=== PATIENT | male | born 1985 | race Hispanic/Latino ===

== ENCOUNTER 2021-02-17 08:02 | Emergency (ER) | payer OTHER, SELFPAY ==
[2021-02-17] VITALS (7 sets, daily range): BP systolic 104–145; BP diastolic 64–97; PULSE 69–80; RESP 16; TEMP 36.2; O2SAT 96–100
--- NOTE | ~2021-02-17 | XR_ITS ---
EXAMINATION: XR knee LT 3V DATE: 02/17/2021 14:34 INDICATION: Left knee pain TECHNIQUE: Three views of the left knee were obtained. COMPARISON: None. FINDINGS: Alignment is normal. No fracture or osteochondral lesion. Joint spaces are normal with no e rosions. There is a small knee joint effusion. Soft tissues are unremarkable. IMPRESSION: 1. Small knee joint effusion without acute osseous abnormality. Reviewed, dictated and finalized at location A.
[2021-02-17] MEDS: oxyCODONE/ACETAMINOPHEN (*CRX) 5-325 MG TABLET 2 TABLET PO (14:37)
[2021-02-17] MEDS: methylPREDNISolone SOD SUCC 125 MG VIAL IM (14:38)
--- NOTE | 2021-02-17 14:46 | ED.GENADULT ---
HPI - General Adult General Chief complaint: Extremity Injury, Lower Stated complaint: knee pain Time Seen by Provider: 02/17/21 12:39 Source: patient Mode of arrival: ambulatory History of Present Illness HPI narrative: Patient presents for evaluation of left knee pain. Symptom onset around 2300 last night. He cannot identify any precipitating injury. He said pain started gradually progressively worsened. Pain is now severe, throbbing, radiating into his left thigh and left lower leg. He has a history of gout and states that he believes his symptoms are consistent with that. He took a dose of allopurinol without significant improvement. He states it usually takes about 1 week before he notes improvement when taking gout. He states he is associated warmth, denies any visible wounds. Movement makes his pain worse. No additional complaints or concerns. Related Data Home Medications Medication Instructions Recorded Confirmed allopurinol 02/17/21 Allergies Allergy/AdvReac Type Severity Reaction Status Date / Time No Known Allergies Allergy Verified 02/17/21 14:11 Review of Systems Review of Systems: CONSTITUTIONAL: Denies fever, chills, or sweats. EYES: Denies visual changes, redness, or discharge. ENT: Denies rhinorrhea, congestion, sore throat, or otalgia. CARDIOVASCULAR: Denies chest pain, palpitations, or edema. RESPIRATORY: Denies cough or dyspnea. GASTROINTESTINAL: Denies abdominal pain, nausea, vomiting, or diarrhea. GENITOURINARY: Denies dysuria or hematuria. SKIN: Denies rash or itching. MUSCULOSKELETAL: Reports left knee pain NEUROLOGIC: Denies headache, numbness, dizziness, or weakness. PSYCHIATRIC: Denies anxiety or depression. PMFSH Past Medical History Medical History (Updated 02/17/21 @ 15:49 by ASHLIE Salazar, ) Gout Surgical History Surgical History No pertinent past surgical history Family History Family History Mother No pertinent past medical history Social History Social History Smoking status: Never smoker Alcohol intake: never Spiritual care concerns: No Exam Narrative: GENERAL: Well-appearing, well-nourished, and in no acute distress. HEAD: Normocephalic, atraumatic. EYES: PERRLA and EOMI. ENT: Nares clear, no rhinorrhea or epistaxis. Mucous membranes moist. Oropharynx without tonsillar hypertrophy exudate or other lesions. Bilateral TMs pearly prasad nonbulging NECK: Supple. No adenopathy or masses. No carotid bruits or JVD CHEST: Clear to auscultation. No respiratory distress. No wheezes rales or rhonchi HEART: Regular rate and rhythm. No murmur heard. Normal peripheral pulses. ABDOMEN: Soft, nontender, nondistended, normal active bowel sounds. EXTREMITIES: Patient is able to tolerate full passive range of motion of the left knee. Does have some decreased ROM with extension of the left knee actively 2/2 pain. Trace amount of swelling. No significant tenderness. No crepitus or deformity. No warmth SKIN: Warm, dry, no rash. NEURO: No focal deficits. Alert and oriented x3. PSYCH: Normal mood and affect. Course Course Emergency Course: This is a 35-year-old male who presented with complaints of left knee pain. He has a history of gout and this feels similar. Although his uric acid was not markedly elevated, his exam is consistent with gout. I do not think that this is a septic joint as he has essentially full ROM and no redness. I did offer to tap his knee, which he declined. He would like to go home with prescriptions for prednisone and hydrocodone and he will follow-up outpatient for further evaluation and treatment. He was advised to return for persistent pain or decline in condition. Patient in agreement plan of care Vital Signs Vital signs: Vital Signs Temperatur
[2021-02-17 15:03] LABS: Basophils Percent Auto 0.4 % (0.2-1.2); Eosinophils Absolute Auto 0.2 K/mm3 (0-0.3); Eosinophils Percent Auto 1.8 % (0-4.4); Hematocrit 45.7 % (42.0-52.0); Hemoglobin 15.7 g/dL (14.0-18.0); Immature Granulocyte Absolute 0.04 K/mm3 (0.00-0.031); Immature Granulocyte Percent A 0.4 % (0-0.5); Lymphocytes Absolute Auto 2.01 K/mm3 (0.9-3.2); Lymphocytes Percent Auto 19.4 % (18.3-44.2); Mean Corpuscular HGB Conc 34.4 g/dl (32-36); Mean Corpuscular Hemoglobin 31.5 pg (26-34); Mean Corpuscular Volume 91.6 fl (80-100); Mean Platelet Volume 9.4 fl (7.4-10.4); Monocytes Absolute Auto 0.7 K/mm3 (0.1-0.6); Monocytes Percent Auto 6.5 % (2.6-8.5); Neutrophils Absolute Auto 7.4 K/mm3 (1.3-6.7); Neutrophils Percent Auto 71.5 % (45.5-73.1); Platelet Count Result 301 k/mm3 (150-375); Red Blood Count 4.99 M/mm3 (4.6-6.20); Red Cell Distribution Width 12.7 % (11.5-14.5); White Blood Count 10.3 K/mm3 (4.5-10.0)
[2021-02-17 15:19] LABS: Alanine Aminotransferase 29 U/L (4-50); Alkaline Phosphatase 81 U/L (38-126); Anion Gap 10 mmol/L (8-16); Aspartate Amino Transferase 32 U/L (17-59); Bilirubin,Total 0.8 mg/dL (0.2-1.3); Blood Urea Nitrogen 15 mg/dL (9-20); CRP < 0.5 mg/dL (<1.0); Calcium 9.6 mg/dL (8.4-10.2); Carbon Dioxide 28 mmol/L (22-30); Chloride 100 mmol/L (98-107); Estimated CRCL calculation 117 ml/min; Estimated Glomerular Filt Rate > 60; Glucose 98 mg/dL (65-110); Potassium 4.6 mmol/L (3.4-5.0); Sodium 138 mmol/L (137-145); Uric Acid 7.9 mg/dL (3.5-8.5)
[2021-02-17 15:31] LABS: Erythrocyte Sedimentation Rate 3 mm/hr (0-20)
== END 2021-02-17 17:00 | disposition home or self-care (01) ==
PROVIDERS: Emergency Provider Nurse Practitioner
DX: M25.462 Effusion, left knee (principal); M10.9 Gout, unspecified
CPT/HCPCS: 36415; 73562; 80053; 84550; 85025; 85652; 86140; 96372; 99283; A9270; J2930

== ENCOUNTER 2021-03-12 16:44 | Emergency (ER) | payer OTHER, SELFPAY ==
[2021-03-12 16:48] VITALS: BP 124/74; PULSE 86; RESP 18; TEMP 37.1; O2SAT 99
--- NOTE | 2021-03-12 17:13 | ED.EXTPRO ---
HPI - Extremity Problem General Chief complaint: Extremity Problem,Nontraumatic Stated complaint: ankle pain , knee pain Time Seen by Provider: 03/12/21 16:57 Source: patient Mode of arrival: ambulatory Limitations: no limitations History of Present Illness HPI Narrative: Patient is a 35-year-old male complaining of right ankle and right knee pain that started 1 week ago. Patient states his pain is an 8 out of 10, dull, aching. Patient states he has a history of gout and usually these joints are affected when he has a flareup. Patient states that he takes allopurinol for his gout but it is not working. Patient denies any calf pain or swelling, fever or chills. Patient denies any redness of the affected extremity. Related Data Allergies Allergy/AdvReac Type Severity Reaction Status Date / Time No Known Allergies Allergy Verified 03/12/21 16:57 Review of Systems Review of Systems: All systems reviewed & are unremarkable except as noted in HPI and below Constitutional: Constitutional: Reports as per HPI PMFSH Past Medical History Medical History Gout Surgical History Surgical History No pertinent past surgical history Family History Family History Mother No pertinent past medical history Social History Social History Smoking status: Never smoker Alcohol intake: never Spiritual care concerns: No Exam Const: General: cooperative, healthy appearing, comfortable, no acute distress, well developed, alert and awake; No confusion Orientation/consciousness: oriented to person, oriented to place, oriented to time, patient oriented x3 and No confusion Limitations: no limitations HENMT: Head: normal to inspection, normocephalic and atraumatic Ears: hearing grossly normal bilaterally, TM normal on the right and TM normal on the left General nose exam: Normal external nose present, Normal nares present and No nasal discharge present Face and sinus: normal facial exam Mouth: Yes Normal oral and palatal mucosa present, Yes lip normal, Yes tongue normal and Yes oropharynx normal Throat: posterior oropharynx normal, tonsils normal and uvula midline Eyes: General: appearance normal, both eyes and all related structures Pupils: Equal, round and reactive pupils present EOM: EOMs intact bilaterally Neck: Neck: normal visual inspection, full ROM, no lymphadenopathy and no meningeal signs Chest: Chest palpation & inspection: normal inspection of the chest Resp: Effort & Inspection: normal respiratory effort, able to speak in complete sentences, no respiratory distress and not tachypneic Auscultation: clear to auscultation bilaterally, no crackles, no rales, no rhonchi and no wheezes Cardio: Rate: regular rate Rhythm: regular rhythm GI: Inspection: normal to inspection GI Palp: No abdominal tenderness, Yes Soft to palpation, No Tenderness to palpation present (GI), No Guarding due to palpation present (GI), No Rigid due to palpation and No Rebound tenderness present Auscultation: normal bowel sounds : General: Yes no CVA tenderness Back/Spine/Pelvis: Back: no CVA tenderness Skin: General skin exam: normal color, no rashes or lesions noted, elasticity normal and turgor normal Neuro: General: oriented to person, oriented to place, oriented to time, patient oriented x3, tone normal, moves all extremities, Normal light touch and pain sensation, no meningeal signs, no focal motor deficits, CN's II-XI intact bilaterally and No confusion Cranial nerves: Yes Equal, round and reactive pupils present Speech: No Abnormal speech present Sensory Exam: No Sensory deficit (Neuro) Extrem: General: normal to inspection, full ROM and capillary refill normal Psych: Appearance: grossly normal and well kempt Men
[2021-03-12] MEDS: KETOROLAC (*BKC) 60 MG/2 ML VIAL IM (17:35)
== END 2021-03-12 18:45 | disposition home or self-care (01) ==
LOC: ANHED 17:46
PROVIDERS: Emergency Provider Emergency Medicine; PCP Family Medicine
DX: M10.9 Gout, unspecified (principal)
CPT/HCPCS: 96372; 99283; J1885